=== PATIENT | female | born 1955 ===

== ENCOUNTER 2017-07-20 19:05 | Emergency (ER) | payer MEDICAID ==
[2017-07-20 19:25] VITALS: BP 109/71; PULSE 74; RESP 16; TEMP 99; O2SAT 97
[2017-07-20] MEDS ORDERED: Sodium Chloride 0.9% 1,000 ML IV STA (19:57)
--- NOTE | 2017-07-20 20:05 | ED PDOC ---
HPI: Headache Time Seen by Provider: 07/20/17 19:26 Chief Complaint (Nursing): Headache Chief Complaint (Provider): Headache History Per: Patient History/Exam Limitations: no limitations Onset/Duration Of Symptoms: Days (x4) Current Symptoms Are (Timing): Still Present Quality: "Pain" Preceeding Symptoms: None Associated Symptoms: Vomiting (resolved), Other (loss of appetite) Additional History Per: Family (son) Additional Complaint(s): Shira Kimble is a 62 year old female, with a past medical history of HTN, hemorrhagic stroke and craniotomy, who presents to the emergency department accompanied by son complaining of an intermittent headache onset for x4 days. She states the headache comes and goes every 5 minutes, and is not the worst headache of her life or describe it as a thunderclap headache. Patient also reports having fever, and vomiting for a few days but has since resolved. However, she is still complaining of loss of appetite. Patient works at the [employer] and states she spend great deal of time outside in the cold a couple of days ago. She took Tylenol with no relief. Patient reports similar symptoms many years ago. Patient states she had a brain bleed for which she had surgery done at [place]. She has not seen her doctor for many years and doesn't like going to hospitals. She came to the ED today after her son convinced her. She is not taking any medication for her HTN. She denies any sore throat, diarrhea, chest pain or head injury. No further medical complaints. PMD: None provided. Past Medical History Reviewed: Historical Data, Nursing Documentation, Vital Signs Vital Signs: Last Vital Signs Temp 99.0 F 07/20/17 19:22 Pulse 74 07/20/17 19:22 Resp 16 07/20/17 19:22 BP 109/71 07/20/17 19:22 Pulse Ox 97 07/20/17 19:22 - Medical History PMH: HTN, Hypercholesterolemia Other PMH: hemorrhagic stroke - Surgical History Other surgeries: hysterectomy, craniotomy - Family History Family History: States: No Known Family Hx - Immunization History Hx Tetanus Toxoid Vaccination: No Hx Influenza Vaccination: No Hx Pneumococcal Vaccination: No - Home Medications Home Medications: Ambulatory Orders Medication Instructions Recorded Acetaminophen/Oxycodone Hydr 1 tab PO Q4H #10 tab 04/12/13 [Percocet 325 mg-5 mg] Cephalexin [Keflex] 500 mg PO QID #20 cap 04/12/13 Acetaminophen/Butalbital/Caf 1 tab PO Q6 PRN #15 tab 07/20/17 [Fioricet] - Allergies Allergies/Adverse Reactions: Allergies Allergy/AdvReac Type Severity Reaction Status Date / Time Penicillins Allergy RASH Verified 07/20/17 19:21 Review of Systems ROS Statement: Except As Marked, All Systems Reviewed And Found Negative Constitutional: Negative for: Fever (resolved) ENT: Negative for: Throat Pain Cardiovascular: Negative for: Chest Pain Gastrointestinal: Positive for: Other (loss of appetite). Negative for: Vomiting (resolved), Diarrhea Neurological: Positive for: Headache (intermittent) Physical Exam - Reviewed Nursing Documentation Reviewed: Yes Vital Signs Reviewed: Yes - Physical Exam Appears: Positive for: Non-toxic Head Exam: Positive for: ATRAUMATIC, NORMAL INSPECTION, NORMOCEPHALIC Skin: Positive for: Normal Color, Warm, Dry Eye Exam: Positive for: Normal appearance, EOMI, PERRL Neck: Positive for: Painless ROM, Supple Cardiovascular/Chest: Positive for: Regular Rate, Rhythm. Negative for: Murmur Respiratory: Positive for: Normal Breath Sounds (clear to auscultation). Negative for: Respiratory Distress Gastrointestinal/Abdominal: Positive for: Normal Exam, Soft. Negative for: Tenderness Extremity: Positive for: Normal ROM (all extremities). Negative for: Tenderness , Deformity, Swelling Neurologic/Psych: Positive for: Alert, Oriented (x3), Gait (steady). Negative for: Motor/Sensory Deficits - Laboratory Results Result Diagrams: 07/20/17 20:15 07/20/17 20:15 - ECG O2 Sat by Pulse Oximetry: 97 (RA) Pulse Ox Interpretation: Normal Medical Decision Making Medical Decision Making: Initial Impression: headache differential includes: primary headaches such as migraines, and secondary headaches such as brain mass. HTN, intracranial bleeding. less likely CVA. Initial Plan: --Head w/ contrast [CT] --BMP --Urine dipstick --CBC w/ differential --Erythrocyte sedimentation rate --PTT --PT --Reglan 10 mg IVP --Sodium Chloride 1,000 ml IV 1,000 mls/hr --Reevaluation -Patient does report similar headaches for many years, not the worst headache or thunderclap headache. 21:[address] FINDINGS: Brain: Small nonspecific calcification right frontal lobe. Vascular calcification. No hemorrhage. No significant white matter disease. No edema. Ventricles: No hydrocephalus. Bones: Skull is intact. Sinuses: Evidence of chronic left sphenoid sinus disease with calcifications. Mastoid air cells: No mastoid effusion. IMPRESSION: No CT evidence of acute intracranial abnormality. Please see details/findings as above. 22:45 -Patient reports significant improvement of headache and is currently feeling better. Patient was instructed to follow up with clinic and neurologist. Scribe Attestation: Documented by Blair Montilla, acting as a scribe for Elke Barraza MD Provider Scribe Attestation: All medical record entries made by the Scribe were at my direction and personally dictated by me. I have reviewed the chart and agree that the record accurately reflects my personal performance of the history, physical exam, medical decision making, and the department course for this patient. I have also personally directed, reviewed, and agree with the discharge instructions and disposition. Disposition - Clinical Impression Clinical Impression: Headache - Patient ED Disposition Is Patient to be Admitted: No Doctor Will See Patient In The: Office Counseled Patient/Family Regarding: Studies Performed, Diagnosis, Need For Followup - Disposition Referrals: [facility] [Outside] Disposition: Routine/Home Disposition Time: 23:21 Condition: IMPROVED Additional Instructions: Take your medications as instructed. Follow up with your PCP in 2-3 days. Return for worsening. Prescriptions: Acetaminophen/Butalbital/Caf [Fioricet] 1 tab PO Q6 PRN #15 tab PRN Reason: Headache Instructions: Headache, Adult
[2017-07-20 21:13] LABS: BASO # 0.1 K/uL (0.0-0.2); BASO % 1.1 % (0.0-2.0); EOS # 0.2 K/uL (0.0-0.7); EOS % 2.1 % (0.0-4.0); HEMOGLOBIN 13.9 g/dL (12.0-16.0); LYMPH # 1.7 K/uL (1.0-4.3); LYMPH % 20.3 % (20.0-40.0); MEAN CELL VOLUME 87.5 fl (81.0-99.0); MEAN CORPUSCULAR HEMOGLOBIN 29.4 pg (27.0-31.0); MEAN CORPUSCULAR HGB CONC 33.6 g/dL (33.0-37.0); MEAN PLATELET VOLUME 8.2 fl (7.2-11.7); MONO # 0.7 K/uL (0.0-0.8); NEUT # 5.5 K/uL (1.8-7.0); NEUT % 67.5 % (50.0-75.0); RBC 4.71 Mil/uL (3.80-5.20); RED CELL DISTRIBUTION WIDTH 13.8 % (11.5-14.5); WHITE BLOOD COUNT 8.2 K/uL (4.8-10.8)
[2017-07-20 21:20] LABS: BLOOD UREA NITROGEN 14 mg/dl (7-17); CALCIUM 8.7 mg/dL (8.4-10.2); GFR AFRICAN-AMERICAN > 60; GFR NON-AFRICAN AMERICAN > 60
--- NOTE | 2017-07-20 21:29 | CT ---
EXAM: CT Head Without Intravenous Contrast CLINICAL HISTORY: 62 years old, female; Pain; Headache; Prior surgery; Surgery type: HX of stroke; Patient HX: Pt states: Brain bleed and surgery TECHNIQUE: Axial computed tomography images of the head/brain without intravenous contrast. All CT scans at this facility use one or more dose reduction techniques, viz.: automated exposure control; ma/kV adjustment per patient size (including targeted exams where dose is matched to indication; i.e. head); or iterative reconstruction technique. Coronal and sagittal reformatted images were created and reviewed. COMPARISON: No relevant prior studies available. FINDINGS: Brain: Small nonspecific calcification right frontal lobe. Vascular calcification. No hemorrhage. No significant white matter disease. No edema. Ventricles: No hydrocephalus. Bones: Skull is intact. Sinuses: Evidence of chronic left sphenoid sinus disease with calcifications. Mastoid air cells: No mastoid effusion. IMPRESSION: No CT evidence of acute intracranial abnormality. Please see details/findings as above.
[2017-07-20 21:33] LABS: PARTIAL THROMBOPLASTIN TIME 31.5 Seconds (25.6-37.1)
== END 2017-07-20 23:30 | disposition home or self-care (01) ==
LOC: H.ER 19:05
DX: R51 Headache (principal); E78.00 Pure hypercholesterolemia, unspecified; I10 Essential (primary) hypertension; Z86.73 Personal history of transient ischemic attack (TIA), and cerebral infarction without residual deficits; Z88.0 Allergy status to penicillin; Z90.710 Acquired absence of both cervix and uterus
CPT/HCPCS: 70450; 80048; 85025; 85610; 85651; 85730; 96361; 96374; 99283; J1885; J7040

== ENCOUNTER 2017-07-26 12:14 | Emergency (ER) | payer MEDICAID ==
--- NOTE | 2017-07-26 14:07 | ED PDOC ---
HPI: Headache Time Seen by Provider: 07/26/17 12:32 Chief Complaint (Nursing): Headache History Per: Patient (this 62 yo female returns to the ER because of headaches. She was seen 3 days earlier for the same and discharged home after workup with CT and labs. Patient states that the Fioricet has not helped. She continues to have the same headches and also has dizziness.) History/Exam Limitations: no limitations Past Medical History Reviewed: Historical Data, Nursing Documentation, Vital Signs Vital Signs: Last Vital Signs Temp 98.0 F 07/26/17 12:18 Pulse 68 07/26/17 12:18 Resp 16 07/26/17 12:18 BP 116/68 07/26/17 12:18 Pulse Ox 97 07/26/17 12:18 - Medical History PMH: HTN, Hypercholesterolemia - Surgical History Surgical History: No Surg Hx - Family History Family History: States: No Known Family Hx - Immunization History Hx Tetanus Toxoid Vaccination: No Hx Influenza Vaccination: No Hx Pneumococcal Vaccination: No - Home Medications Home Medications: Ambulatory Orders Medication Instructions Recorded Acetaminophen/Oxycodone Hydr 1 tab PO Q4H #10 tab 04/12/13 [Percocet 325 mg-5 mg] Cephalexin [Keflex] 500 mg PO QID #20 cap 04/12/13 Acetaminophen/Butalbital/Caf 1 tab PO Q6 PRN #15 tab 07/20/17 [Fioricet] Acetaminophen [Tylenol 325mg tab] 650 mg PO Q6H PRN #50 tab 07/26/17 Ibuprofen [Motrin Tab] 600 mg PO TID PRN #30 tab 07/26/17 - Allergies Allergies/Adverse Reactions: Allergies Allergy/AdvReac Type Severity Reaction Status Date / Time Penicillins Allergy RASH Verified 07/20/17 19:21 Review of Systems ROS Statement: Except As Marked, All Systems Reviewed And Found Negative Physical Exam - Reviewed Nursing Documentation Reviewed: Yes Vital Signs Reviewed: Yes - Physical Exam Appears: Positive for: Well, Non-toxic, No Acute Distress Head Exam: Positive for: ATRAUMATIC, NORMAL INSPECTION, NORMOCEPHALIC Skin: Positive for: Normal Color, Warm, DRY Eye Exam: Positive for: EOMI, Normal appearance, PERRL ENT: Positive for: Normal ENT Inspection Neck: Positive for: Normal, Painless ROM Cardiovascular/Chest: Positive for: Regular Rate, Rhythm Respiratory: Positive for: CNT, Normal Breath Sounds Gastrointestinal/Abdominal: Positive for: Normal Exam, Soft Back: Positive for: Normal Inspection Extremity: Positive for: Normal ROM Neurologic/Psych: Positive for: Alert, Oriented - ECG O2 Sat by Pulse Oximetry: 97 Medical Decision Making Medical Decision Making: Patient's labs and imaging from recent visit. Details discussed. Explain to patient's son that repeat studies are not indicated. Patient improved with Toradol IM and Tyelenol Disposition - Clinical Impression Clinical Impression: Headache - Patient ED Disposition Is Patient to be Admitted: No Doctor Will See Patient In The: Office Counseled Patient/Family Regarding: Diagnosis, Need For Followup, Rx Given - Disposition Referrals: [facility] [Outside] [facility] [Outside] [facility] [Outside] Disposition Time: 12:09 Condition: IMPROVED Prescriptions: Acetaminophen [Tylenol 325mg tab] 650 mg PO Q6H PRN #50 tab PRN Reason: Pain, Mild (1-3) Ibuprofen [Motrin Tab] 600 mg PO TID PRN #30 tab PRN Reason: Pain, Moderate (4-7) Instructions: Headache, Adult (DC) Forms: [employer] (Faroese) Print Language: SRI LANKAN - POA Present On Arrival: None
[2017-07-26 15:23] VITALS: BP 123/68; PULSE 55; RESP 18; TEMP 98.6; O2SAT 99
== END 2017-07-26 15:29 | disposition home or self-care (01) ==
LOC: H.ER 12:14
DX: R51 Headache (principal); I10 Essential (primary) hypertension; Z88.0 Allergy status to penicillin
CPT/HCPCS: 96372; 99283; J1885

== ENCOUNTER 2017-07-27 16:32 | Observation (INO) | payer MEDICAID ==
--- NOTE | 2017-07-27 16:54 | ED PDOC ---
HPI: Headache Time Seen by Provider: 07/27/17 16:53 Chief Complaint (Nursing): Headache Chief Complaint (Provider): headache History Per: Patient Additional Complaint(s): 62 year old female presents to emergency department for evaluation of persistent headache ongoing for 2 weeks. Patient was seen initially on July 20 in ED and again yesterday in ED. CT head for July 20 was read as negative. After first ED visit she was given rx Fioricet which did not help. Yesterday when she returned to ED she was given prescriptions for Tylenol and Motrin which also do not provide adequate headache relief. Patient rates pain as an 8 out of 10. No associated nausea, vomiting or vision changes. Patient was seen today at [facility] and was sent to ED for further evaluation. PMD: [facility] Past Medical History Reviewed: Historical Data, Nursing Documentation, Vital Signs Vital Signs: Last Vital Signs Temp 98.0 F 07/27/17 16:34 Pulse 57 L 07/27/17 16:34 Resp 16 07/27/17 16:34 BP 138/73 07/27/17 16:34 Pulse Ox 99 07/27/17 16:34 - Medical History PMH: HTN, Hypercholesterolemia - Surgical History Other surgeries: craniotomy - Family History Family History: States: No Known Family Hx - Living Arrangements Living Arrangements: With Family - Social History Current smoker - smoking cessation education provided: No Alcohol: None Drugs: Denies - Home Medications Home Medications: Ambulatory Orders Medication Instructions Recorded Acetaminophen/Oxycodone Hydr 1 tab PO Q4H #10 tab 04/12/13 [Percocet 325 mg-5 mg] Cephalexin [Keflex] 500 mg PO QID #20 cap 04/12/13 Acetaminophen/Butalbital/Caf 1 tab PO Q6 PRN #15 tab 07/20/17 [Fioricet] Acetaminophen [Tylenol 325mg tab] 650 mg PO Q6H PRN #50 tab 07/26/17 Ibuprofen [Motrin Tab] 600 mg PO TID PRN #30 tab 07/26/17 - Allergies Allergies/Adverse Reactions: Allergies Allergy/AdvReac Type Severity Reaction Status Date / Time Penicillins Allergy RASH Verified 07/20/17 19:21 Review of Systems ROS Statement: Except As Marked, All Systems Reviewed And Found Negative Constitutional: Negative for: Fever, Chills, Weakness Cardiovascular: Negative for: Chest Pain Respiratory: Negative for: Cough, Shortness of Breath Gastrointestinal: Negative for: Nausea, Vomiting Neurological: Positive for: Headache, Dizziness. Negative for: Weakness, Numbness, Incoordination, Change in Speech, Confusion, Seizures, Altered Mental Status Physical Exam - Reviewed Nursing Documentation Reviewed: Yes Vital Signs Reviewed: Yes - Physical Exam Appears: Positive for: Well, Non-toxic, No Acute Distress Head Exam: Positive for: ATRAUMATIC, NORMAL INSPECTION Skin: Negative for: Rash Eye Exam: Positive for: Normal appearance ENT: Positive for: Normal ENT Inspection Neck: Positive for: Normal. Negative for: Pain On Movement Of Neck Cardiovascular/Chest: Positive for: Regular Rate, Rhythm Respiratory: Positive for: Normal Breath Sounds. Negative for: Wheezing, Respiratory Distress Extremity: Positive for: Normal ROM Neurologic/Psych: Positive for: Alert, information services assistant II-XII (grossly intact), Oriented. Negative for: Motor/Sensory Deficits, Aphasia, Facial Droop - Laboratory Results Result Diagrams: 07/27/17 17:25 07/27/17 17:25 - ECG Interpretation Of ECG: Normal sinus rhythm 61 bpm, no acute changes, reviewed by PA and ED attending O2 Sat by Pulse Oximetry: 99 Pulse Ox Interpretation: Normal - Other Rad CT head X-Ray: Read By Radiologist X-Ray Interpretation: see below CTA head and neck X-Ray: Read By Radiologist X-Ray Interpretation: see below CXR X-Ray: Interpreted by Me, Viewed By Me X-Ray Interpretation: no acute finding Medical Decision Making Medical Decision Makin62 year old with persistent headache, sent by clinic Plan: CBC CMP CT head IVF IV magnesium IV decadron IV depakote IV toradol PO reglan CT: HEMORRHAGE: No intracranial hemorrhage. BRAIN: A tiny granuloma is reiterated right frontal gyrus superiorly once again with remaining brain parenchyma normal in density once again including those in the posterior fossa. Corticomedullary differentiation remains good and there is no edema pattern throughout the brain. No interval mass effect or fluid collection is appreciated with the sulci and cisterns unremarkable throughout. Limited diffuse cerebral atrophy is reiterated Midline brain anatomy is stable appearing. VENTRICLES: Unremarkable. No hydrocephalus. CALVARIUM: Unremarkable. PARANASAL SINUSES: Prominent left sphenoid sinus disease reiterated. MASTOID AIR CELLS: Unremarkable as visualized. No inflammatory changes. OTHER FINDINGS: None. IMPRESSION: Stable unenhanced head CT with no acute intracranial findings. Limited diffuse cerebral atrophy is reiterated. Left sphenoid sinus disease again evident. 6:50 pm: Patient reports some improvement to headache pain status post Toradol, Reglan and Decadron. Magnesium and Depakote now being administered. Case was discussed with family practice resident, Dr. Pandya who states toward her CTA head and neck. 9:00 PM CTA: left sphenoid sinus mucosal thickening/polyp, no acute finding. Headache is improved with patient still complains of dizziness. As per family practice resident, patient will be admitted for observation. Patient is aware of and agrees with admission. Disposition - Clinical Impression Clinical Impression: Headache, Dizziness - Patient ED Disposition Is Patient to be Admitted: Yes - Disposition Disposition Time: 21:27 Condition: FAIR - Pt Status Changed To: Hospital Disposition Of: Observation - POA Present On Arrival: None Results - Lab Results Lab Results: 07/27/17 07/27/17 17:25 17:25 WBC 9.1 RBC 4.49 Hgb 13.1 Hct 39.5 MCV 88.0 MCH 29.1 MCHC 33.1 RDW 14.0 Plt Count 257 MPV 8.4 Neut % (Auto) 71.5 Lymph % (Auto) 20.0 Norman % (Auto) 5.3 Eos % (Auto) 1.9 Baso % (Auto) 1.3 Neut # (Auto) 6.5 Lymph # (Auto) 1.8 Norman # (Auto) 0.5 Eos # (Auto) 0.2 Baso # (Auto) 0.1 Sodium 140 Potassium 3.9 Chloride 104 Carbon Dioxide 23 Anion Gap 17 BUN 14 Creatinine 0.7 Est GFR ( Amer) > 60 Est GFR (Non-Af Amer) > 60 Random Glucose 96 Calcium 8.7 Total Bilirubin 0.3 AST 25 ALT 39 Alkaline Phosphatase 98 Total Protein 6.8 Albumin 3.8 Globulin 3.1 Albumin/Globulin Ratio 1.2
[2017-07-27] MEDS ORDERED: Dexamethasone 4 mg/1 ml IVP STA (17:07)
[2017-07-27] MEDS ORDERED: Valproate 500 MG in Sodium Chloride 0.9% 100 ML IVPB STA (17:07)
[2017-07-27] MEDS ORDERED: Magnesium Sulfate 1 gm in D5W 1 GM/100 ML BAG IVPB STA (17:07)
[2017-07-27] MEDS ORDERED: Sodium Chloride 0.9% 1,000 ML IV STA (17:07)
[2017-07-27 17:33] LABS: BASO # 0.1 K/uL (0.0-0.2); BASO % 1.3 % (0.0-2.0); EOS # 0.2 K/uL (0.0-0.7); EOS % 1.9 % (0.0-4.0); HEMOGLOBIN 13.1 g/dL (12.0-16.0); LYMPH # 1.8 K/uL (1.0-4.3); MEAN CORPUSCULAR HEMOGLOBIN 29.1 pg (27.0-31.0); MEAN CORPUSCULAR HGB CONC 33.1 g/dL (33.0-37.0); MEAN PLATELET VOLUME 8.4 fl (7.2-11.7); MONO # 0.5 K/uL (0.0-0.8); MONO % 5.3 % (0.0-10.0); NEUT # 6.5 K/uL (1.8-7.0); NEUT % 71.5 % (50.0-75.0); NRBC % 0.1 % (0.0-0.0); RBC 4.49 Mil/uL (3.80-5.20); WHITE BLOOD COUNT 9.1 K/uL (4.8-10.8)
[2017-07-27 17:46] LABS: ALB/GLOB RATIO 1.2 (1.0-2.1); ALBUMIN 3.8 g/dL (3.5-5.0); ALT/SGPT 39 U/L (9-52); AST/SGOT 25 U/L (14-36); BLOOD UREA NITROGEN 14 mg/dl (7-17); CALCIUM 8.7 mg/dL (8.4-10.2); GFR AFRICAN-AMERICAN > 60; GFR NON-AFRICAN AMERICAN > 60
[2017-07-27] MEDS ORDERED: Dexamethasone 4 mg/1 ml ONE (18:14)
--- NOTE | 2017-07-27 18:29 | CT ---
PROCEDURE: CT HEAD WITHOUT CONTRAST. HISTORY: persistent headache COMPARISON: Unenhanced head CT dated 07/20/2017. TECHNIQUE: Axial computed tomography images were obtained through the head/brain without intravenous contrast. Radiation dose: Total exam DLP = 698.33 mGy-cm. This CT exam was performed using one or more of the following dose reduction techniques: Automated exposure control, adjustment of the mA and/or kV according to patient size, and/or use of iterative reconstruction technique. FINDINGS: HEMORRHAGE: No intracranial hemorrhage. BRAIN: A tiny granuloma is reiterated right frontal gyrus superiorly once again with remaining brain parenchyma normal in density once again including those in the posterior fossa. Corticomedullary differentiation remains good and there is no edema pattern throughout the brain. No interval mass effect or fluid collection is appreciated with the sulci and cisterns unremarkable throughout. Limited diffuse cerebral atrophy is reiterated Midline brain anatomy is stable appearing. VENTRICLES: Unremarkable. No hydrocephalus. CALVARIUM: Unremarkable. PARANASAL SINUSES: Prominent left sphenoid sinus disease reiterated. MASTOID AIR CELLS: Unremarkable as visualized. No inflammatory changes. OTHER FINDINGS: None. IMPRESSION: Stable unenhanced head CT with no acute intracranial findings. Limited diffuse cerebral atrophy is reiterated. Left sphenoid sinus disease again evident.
[2017-07-27] MEDS ORDERED: Iodixanol 320 MG/ML 100 ML BOTTLE IV ONE (19:43)
--- NOTE | 2017-07-27 22:34 | CP.PCM.HP ---
<Bianka Kumar - Last Filed: 07/28/17 01:21> History of Present Illness - History of Present Illness History of Present Illness: 62 y/o F with PMHx Brain aneurysm approximately 10 years ago, s/p aneurysm repair/Craniotomy at [facility], also h/o stroke with residual left sided weakness presents to ED sent by PMD complaining of persistent and intractable headaches for 2 weeks. Prior to this ER visit, patient had two ER visit dated 07/20/17 and 07/26/17 for similar complains, had a CT scan reported as no evidence of acute intracraneal abnormality, and discharge home on tylenol, fioricet, and ibuprofen. Patient describes her headaches as bilateral, constant , intensity 10/10, improves with analgesics to 5/10, radiating to occipital area , feels more intense in her left sided of her head, aggravated with movement of her head to left side, partially alleviated with analgesics, but never get complate relief of her headache. Denies associated photophobia, phonophobia, and nucal rigidity. Reports a history of approximately 2 days of subjective fevers, nausea and 2-3 episodes of nonbloody vomits associated with her headache 1 week ago, denies subjective fevers, chills, N/V, blurry vision, vision loss, weakness, tingling, numbness. Has a h/o stroke around 2008, seen in [facility], with left side residual weakness, however is unchanged from her baseline. Denies h/o Migraine headaches. PMD: [facility] Full code PMHx: Brain aneurysm approximately 10 years ago, s/p aneurysm repair/Craniotomy at [facility] Allergies: Penicillin/Rash FHx: Mother: : DM and HTN, Father: alive: DM and HTN SHx: craniotomy, hysterectomy, cholecystectomy socialhx: denies smoking, etog, and illicit drugs Live with family ER course: VS: afebrile, BP wnl, HR: 57 PE: no evidence of neurological defect, unremarkable, gait was not assess because patient feels drowsy from medications given for headache labs: CBC, CMP: wnl treatment: dexamethasone 8 mg IV, ketorolac 30 mg IV, mag 1 gm, depakote 500 mg IV, reglan 10 mg PO Present on Admission - Present on Admission Any Indicators Present on Admission: No History of DVT/PE: No History of Uncontrolled Diabetes: No Urinary Catheter: No Decubitus Ulcer Present: No Past Patient History - Past Social History Alcohol: None Drugs: Denies - CARDIAC Hx Hypercholesterolemia: Yes Hx Hypertension: Yes - PSYCHIATRIC Hx Substance Use: No Meds Allergies/Adverse Reactions: Allergies Allergy/AdvReac Type Severity Reaction Status Date / Time Penicillins Allergy RASH Verified 07/20/17 19:21 Physical Exam - Constitutional Appears: Non-toxic, No Acute Distress - Eye Exam Eye Exam: EOMI, Normal appearance Pupil Exam: PERRL - ENT Exam ENT Exam: Mucous Membranes Moist - Respiratory Exam Respiratory Exam: Clear to Auscultation Bilateral, NORMAL BREATHING PATTERN. absent: Rales, Rhonchi, Wheezes, Respiratory Distress, Stridor - Cardiovascular Exam Cardiovascular Exam: REGULAR RHYTHM, +S1, +S2 - GI/Abdominal Exam GI & Abdominal Exam: Normal Bowel Sounds, Soft. absent: Guarding, Hernia, Rebound, Rigid, Tenderness - Extremities Exam Extremities exam: Positive for: normal inspection. Negative for: calf tenderness, pedal edema - Neurological Exam Neurological exam: Alert, CN II-XII Intact, Oriented x3 Additional comments: no evidence of motor deficit in upper/lower extremities - Psychiatric Exam Psychiatric exam: Normal Affect, Normal Mood - Skin Skin Exam: Dry, Intact, Normal Color Results - Vital Signs Recent Vital Signs: Last Vital Signs Temp 98.0 F 07/27/17 16:34 Pulse 57 L 07/27/17 16:34 Resp 16 07/27/17 16:34 BP 138/73 07/27/17 16:34 Pulse Ox 99 07/27/17 21:28 - Labs Result Diagrams: 07/27/17 17:25 07/27/17 17:25 Labs: Laboratory Results - last 24 hr 07/27/17 07/27/17 17:25 17:25 WBC 9.1 RBC 4.49 Hgb 13.1 Hct 39.5 MCV 88.0 MCH 29.1 MCHC 33.1 RDW 14.0 Plt Count 257 MPV 8.4 Neut % (Auto) 71.5 Lymph % (Auto) 20.0 [place] % (Auto) 5.3 Eos % (Auto) 1.9 Baso % (Auto) 1.3 Neut # (Auto) 6.5 Lymph # (Auto) 1.8 [place] # (Auto) 0.5 Eos # (Auto) 0.2 Baso # (Auto) 0.1 Sodium 140 Potassium 3.9 Chloride 104 Carbon Dioxide 23 Anion Gap 17 BUN 14 Creatinine 0.7 Est GFR ( Amer) > 60 Est GFR (Non-Af Amer) > 60 Random Glucose 96 Calcium 8.7 Total Bilirubin 0.3 AST 25 ALT 39 Alkaline Phosphatase 98 Total Protein 6.8 Albumin 3.8 Globulin 3.1 Albumin/Globulin Ratio 1.2 Assessment & Plan - Assessment and Plan (Free Text) Assessment: 62 y/o F with PMHx of Brain aneurysm, and stroke admitted with new intractable and persistent headaches. Plan: Intractable Headache -MedSurg -no evidence of focal neurological defect, no visual defects -unclear etiology -new onset in elderly -check lipid profile, TSH, HgbA1C in am -repeated Head CT reported as no evidence of acute intracraneal findings -Head and neck CTA reported as per ER provider no acute findings, pending official results -s/p dexamethasone 8 mg IV, ketorolac 30 mg IV, mag 1 gm, depakote 500 mg IV, reglan 10 mg PO in ER -Neurology consult in AM, recommendations are appreciated H/O stroke -unclear if ischemic or hemorrhagic etiology -pt in no current medications -check lipid profile DVT prophylaxis SCDs - Date & Time Date: 07/27/17 Time: 22:00 <Valorie Figueroa - Last Filed: 07/28/17 13:31> Results - Vital Signs Recent Vital Signs: Last Vital Signs Temp 98.1 F 07/28/17 08:04 Pulse 69 07/28/17 08:04 Resp 18 07/28/17 08:04 BP 101/64 07/28/17 08:04 Pulse Ox 98 07/28/17 08:04 - Labs Result Diagrams: 07/27/17 17:25 07/27/17 17:25 Labs: Laboratory Results - last 24 hr 07/27/17 07/27/17 07/28/17 17:25 17:25 05:30 WBC 9.1 RBC 4.49 Hgb 13.1 Hct 39.5 MCV 88.0 MCH 29.1 MCHC 33.1 RDW 14.0 Plt Count 257 MPV 8.4 Neut % (Auto) 71.5 Lymph % (Auto) 20.0 [place] % (Auto) 5.3 Eos % (Auto) 1.9 Baso % (Auto) 1.3 Neut # (Auto) 6.5 Lymph # (Auto) 1.8 [place] # (Auto) 0.5 Eos # (Auto) 0.2 Baso # (Auto) 0.1 ESR Sodium 140 Potassium 3.9 Chloride 104 Carbon Dioxide 23 Anion Gap 17 BUN 14 Creatinine 0.7 Est GFR ( Amer) > 60 Est GFR (Non-Af Amer) > 60 Random Glucose 96 Calcium 8.7 Total Bilirubin 0.3 AST 25 ALT 39 Alkaline Phosphatase 98 Total Protein 6.8 Albumin 3.8 Globulin 3.1 Albumin/Globulin Ratio 1.2 Triglycerides 141 Cholesterol 228 H LDL Cholesterol Direct 155 H HDL Cholesterol 39 TSH 3rd Generation 1.11 07/28/17 05:30 WBC RBC Hgb Hct MCV MCH MCHC RDW Plt Count MPV Neut % (Auto) Lymph % (Auto) [place] % (Auto) Eos % (Auto) Baso % (Auto) Neut # (Auto) Lymph # (Auto) [place] # (Auto) Eos # (Auto) Baso # (Auto) ESR 19 Sodium Potassium Chloride Carbon Dioxide Anion Gap BUN Creatinine Est GFR ( Amer) Est GFR (Non-Af Amer) Random Glucose Calcium Total Bilirubin AST ALT Alkaline Phosphatase Total Protein Albumin Globulin Albumin/Globulin Ratio Triglycerides Cholesterol LDL Cholesterol Direct HDL Cholesterol TSH 3rd Generation Attending/Attestation - Attestation I have personally seen and examined this patient.: Yes I have fully participated in the care of the patient.: Yes I have reviewed all pertinent clinical information: Yes Notes (Text): 07/28/17 13:30 ATTENDING -ATTESTATIO STATEMENT. PATIENT AND EXAMINED. CASE DISCUSSED WITH RESIDENTS. AGREE WITH FINDINGS AND PLAN.
[2017-07-28 08:05] VITALS: RESP 18; O2SAT 98
[2017-07-28] MEDS ORDERED: Influenza Vaccine 18yr & older 0.5 ML/45 MCG SYR IM ONE (09:00)
[2017-07-28] MEDS ORDERED: Pneumococcal 23-Valent Vaccine IM ONE (09:00)
--- NOTE | 2017-07-28 09:38 | RAD ---
PROCEDURE: CHEST RADIOGRAPH, 1 VIEW HISTORY: admit COMPARISON: None available. FINDINGS: LUNGS: The lungs are well inflated and clear. PLEURA: No pneumothorax or pleural fluid seen. CARDIOVASCULAR: Normal. OSSEOUS STRUCTURES: No significant abnormalities. VISUALIZED UPPER ABDOMEN: Normal. OTHER FINDINGS: None. IMPRESSION: No active pulmonary disease.
--- NOTE | 2017-07-28 10:54 | CT ---
PROCEDURE: CTA HEAD AND NECK WITH CONTRAST HISTORY: Headache, h/o aneurysm COMPARISON: None available. TECHNIQUE: Initial noncontrast head CT was performed. Subsequently, CT angiogram of the head and neck were performed after the intravenous administration of 80 mL of Omnipaque 350. Contiguous 1.5mm thick images were obtained in the axial plane of the neck. 2-D coronal and sagittal MPR images were obtained. Imaging postprocessing was performed with 3-D images also obtained. A delayed contrast head CT was also obtained. This CT exam was performed using one or more of the following dose reduction techniques: Automated exposure control, adjustment of the mA and/or kV according to patient size, and/or use of iterative reconstruction technique. Contrast dose: 80 mL Visipaque 320 Radiation dose: Total exam DLP = 552.87 mGy-cm. FINDINGS: HEAD: Right: The intracranial internal carotid artery, and anterior and middle cerebral arteries are widely patent. Left: The intracranial internal carotid artery, and anterior and middle cerebral arteries are widely patent. Posterior circulation: The visualized intracranial vertebral arteries, basilar artery and posterior cerebral arteries are widely patent. Ther is no endoluminal filling defect to suggest thrombus. There is no intracranial saccular aneurysm. NECK: There is a three vessel aortic arch. There is no stenosis at the origins of the great vessels at the level of the aortic arch. Right Carotid: On the right, the common carotid, internal carotid and external carotid arteries are widely patent. There is no hemodynamically significant stenosis in the internal carotid arteries. Left Carotid: On the left, the common carotid, internal carotid and external carotid arteries are widely patent.There is no hemodynamically significant stenosis in the internal carotid arteries. The vertebral arteries are widely patent. The vertebral artery is hypoplastic, an anatomic variant. The visualized soft tissues of the neck are normal. The visualized brain and cervical spine are within normal limits. The lung apices are clear. There is a retention cyst/polyp in the left sphenoid chamber. IMPRESSION: No evidence of saccular aneurysm, endoluminal thrombus or occlusion. No hemodynamically significant stenosis in the internal carotid arteries.
[2017-07-28] MEDS ORDERED: DiphenhydrAMINE 50 mg/ml Inj IVP ONE (10:59)
--- NOTE | 2017-07-28 12:32 | CP.PCM.CON ---
History of Present Illness - History of Present Illness History of Present Illness: 62 yr old woman with pmh of aneurysmal clip s/p craniotomy at [facility], with prior stroke and left sided weakness. Miss zurita was sent to the ER complaining of intractable headaches for about 2 weeks, with a total of two visits in one month in the last one two months. Pain is 10/10, throbbing, constant, bilateral, more on left side of head, near temporal region, with no photophobia, phonophobia,nausea or vomiting, seizures or loss of consciousness. She does have a history of 2 days of fevers, with vomiting. Neuroimaging has shown no abnormalities so patient was discharged home on fioricet, tylenol and nsaids. There is no history of mva or head trauma, or lifting heavy weights. PMHx: Brain aneurysm approximately 10 years ago, s/p aneurysm repair/Craniotomy at [facility] Allergies: Penicillin/Rash FHx: Mother: : DM and HTN, Father: alive: DM and HTN SHx: craniotomy, hysterectomy, cholecystectomy socialhx: denies smoking, etog, and illicit drugs On exam: AAOX3. Pupils 3mm -2mm with light. EOMI. CN 2- 12 normal. no diplopia, no nystagmus VFF. SPeech fluent ( exam conducted in [place]),motor: strength: normal. sensory: intact ft, pin, position and vibration sense. Dtr: +2 ul and ll bl. Toes downgoing. No clonus. Gait: normal. no ataxia. turns well. no dysmetria. Past Patient History - Past Medical History & Family History Past Medical History?: Yes - Past Social History Smoking Status: Never Smoked - CARDIAC Hx Hypercholesterolemia: Yes Hx Hypertension: Yes - PULMONARY Hx Respiratory Disorders: No - NEUROLOGICAL Hx Neurological Disorder: No Other/Comment: stroke with residual left sided weakness and brain aneurysm - HEENT Hx HEENT Problems: No - RENAL Hx Chronic Kidney Disease: No - ENDOCRINE/METABOLIC Hx Endocrine Disorders: No - HEMATOLOGICAL/ONCOLOGICAL Hx AIDS: No Hx Human Immunodeficiency Virus (HIV): No - INTEGUMENTARY Hx Dermatological Problems: No - MUSCULOSKELETAL/RHEUMATOLOGICAL Hx Falls: No - GASTROINTESTINAL Hx Gastrointestinal Disorders: No - GENITOURINARY/GYNECOLOGICAL Hx Genitourinary Disorders: No - PSYCHIATRIC Hx Anxiety: No Hx Substance Use: No - SURGICAL HISTORY Hx Cholecystectomy: Yes Hx Hysterectomy: Yes Other/Comment: craniotomy and aneurysm repair - ANESTHESIA Hx Anesthesia: Yes Hx Anesthesia Reactions: No Meds Home Medications: Home Medication List Medication Instructions Recorded Confirmed Type Ibuprofen [Motrin] 400 mg PO Q6 PRN #20 tab 07/28/17 Rx Allergies/Adverse Reactions: Allergies Allergy/AdvReac Type Severity Reaction Status Date / Time Penicillins Allergy RASH Verified 07/20/17 19:21 Results - Vital Signs Recent Vital Signs: Last Vital Signs Temp 98.1 F 07/28/17 08:04 Pulse 69 07/28/17 08:04 Resp 18 07/28/17 08:04 BP 101/64 07/28/17 08:04 Pulse Ox 98 07/28/17 08:04 - Labs Result Diagrams: 07/27/17 17:25 07/27/17 17:25 Labs: Laboratory Results - last 24 hr 07/27/17 07/27/17 07/28/17 17:25 17:25 05:30 WBC 9.1 RBC 4.49 Hgb 13.1 Hct 39.5 MCV 88.0 MCH 29.1 MCHC 33.1 RDW 14.0 Plt Count 257 MPV 8.4 Neut % (Auto) 71.5 Lymph % (Auto) 20.0 [place] % (Auto) 5.3 Eos % (Auto) 1.9 Baso % (Auto) 1.3 Neut # (Auto) 6.5 Lymph # (Auto) 1.8 [place] # (Auto) 0.5 Eos # (Auto) 0.2 Baso # (Auto) 0.1 ESR Sodium 140 Potassium 3.9 Chloride 104 Carbon Dioxide 23 Anion Gap 17 BUN 14 Creatinine 0.7 Est GFR ( Amer) > 60 Est GFR (Non-Af Amer) > 60 Random Glucose 96 Calcium 8.7 Total Bilirubin 0.3 AST 25 ALT 39 Alkaline Phosphatase 98 Total Protein 6.8 Albumin 3.8 Globulin 3.1 Albumin/Globulin Ratio 1.2 Triglycerides 141 Cholesterol 228 H LDL Cholesterol Direct 155 H HDL Cholesterol 39 TSH 3rd Generation 1.11 07/28/17 05:30 WBC RBC Hgb Hct MCV MCH MCHC RDW Plt Count MPV Neut % (Auto) Lymph % (Auto) [place] % (Auto) Eos % (Auto) Baso % (Auto) Neut # (Auto) Lymph # (Auto) [place] # (Auto) Eos # (Auto) Baso # (Auto) ESR 19 Sodium Potassium Chloride Carbon Dioxide Anion Gap BUN Creatinine Est GFR ( Amer) Est GFR (Non-Af Amer) Random Glucose Calcium Total Bilirubin AST ALT Alkaline Phosphatase Total Protein Albumin Globulin Albumin/Globulin Ratio Triglycerides Cholesterol LDL Cholesterol Direct HDL Cholesterol TSH 3rd Generation - Imaging and Cardiology CT scan - head Status: Image reviewed by me (ct and cta head are normal. ), Report reviewed by me Assessment & Plan - Assessment and Plan (Free Text) Assessment: 62 yr old woman with what appears to be migraine, that was exacerbated by viral illness and dehydration. I am not concerned about stroke with this patient as her exam is normal and she does not appear to have any signs of aneurysmal rupture. However, I think neuroimaging would be helpful. Plan: 1. MRI Brain with and without cassandra. 2. Continue current treatmetn for migraine. I would recommend toradol IV, and magnesium 400 mg bid. Thankyou for this interesting consult. We will follow Dr. Fred MD, DPN.
[2017-07-28] MEDS ORDERED: Divalproex 500 mg ER (ONCE DAILY formulation) PO ONE (14:45)
[2017-07-28 16:24] VITALS: BP 121/65; PULSE 75; TEMP 99.1
--- NOTE | 2017-07-28 18:11 | CARD ---
APPROVED REPORT EKG Measurement Heart [id number] <Conclusion> Normal sinus rhythm Normal ECG
--- NOTE | 2017-07-28 18:58 | CP.PCM.DIS ---
Addendum entered and electronically signed by Jeremy Lynn MD 07/28/17 19:03: Physical exam on discharge: AAOX3; denies headaches; cardiac: s1s2 no murmurs; pulm: clear bl no wheezing; abdo: soft nontender; Original Note: <Jeremy Lynn - Last Filed: 07/28/17 18:54> Provider - Provider Date of Admission: 07/27/17 21:28 Attending physician: Cindy Degroot MD Time Spent in preparation of Discharge (in minutes): 20 Diagnosis - Discharge Diagnosis (1) Headache Status: Acute Hospital Course - Lab Results Lab Results: Most Recent Lab Values WBC 9.1 K/uL (4.8-10.8) 07/27/17 17:25 RBC 4.49 Mil/uL (3.80-5.20) 07/27/17 17:25 Hgb 13.1 g/dL (12.0-16.0) 07/27/17 17:25 Hct 39.5 % (34.0-47.0) 07/27/17 17:25 MCV 88.0 fl (81.0-99.0) 07/27/17 17:25 MCH 29.1 pg (27.0-31.0) 07/27/17 17:25 MCHC 33.1 g/dL (33.0-37.0) 07/27/17 17:25 RDW 14.0 % (11.5-14.5) 07/27/17 17:25 Plt Count 257 K/uL (130-400) 07/27/17 17:25 MPV 8.4 fl (7.2-11.7) 07/27/17 17:25 Neut % (Auto) 71.5 % (50.0-75.0) 07/27/17 17:25 Lymph % (Auto) 20.0 % (20.0-40.0) 07/27/17 17:25 [place] % (Auto) 5.3 % (0.0-10.0) 07/27/17 17:25 Eos % (Auto) 1.9 % (0.0-4.0) 07/27/17 17:25 Baso % (Auto) 1.3 % (0.0-2.0) 07/27/17 17:25 Neut # (Auto) 6.5 K/uL (1.8-7.0) 07/27/17 17:25 Lymph # (Auto) 1.8 K/uL (1.0-4.3) 07/27/17 17:25 [place] # (Auto) 0.5 K/uL (0.0-0.8) 07/27/17 17:25 Eos # (Auto) 0.2 K/uL (0.0-0.7) 07/27/17 17:25 Baso # (Auto) 0.1 K/uL (0.0-0.2) 07/27/17 17:25 ESR 19 mm/hr (0-30) 07/28/17 05:30 Sodium 140 mmol/l (132-148) 07/27/17 17:25 Potassium 3.9 MMOL/L (3.6-5.0) 07/27/17 17:25 Chloride 104 mmol/L (98-107) 07/27/17 17:25 Carbon Dioxide 23 mmol/L (22-30) 07/27/17 17:25 Anion Gap 17 (10-20) 07/27/17 17:25 BUN 14 mg/dl (7-17) 07/27/17 17:25 Creatinine 0.7 mg/dl (0.7-1.2) 07/27/17 17:25 Est GFR ( Amer) > 60 07/27/17 17:25 Est GFR (Non-Af Amer) > 60 07/27/17 17:25 Random Glucose 96 mg/dL (65-105) 07/27/17 17:25 Hemoglobin A1c 5.8 % (4.2-6.5) 07/28/17 05:30 Calcium 8.7 mg/dL (8.4-10.2) 07/27/17 17:25 Total Bilirubin 0.3 mg/dl (0.2-1.3) 07/27/17 17:25 AST 25 U/L (14-36) 07/27/17 17:25 ALT 39 U/L (9-52) 07/27/17 17:25 Alkaline Phosphatase 98 U/L (38-126) 07/27/17 17:25 Total Protein 6.8 G/DL (6.3-8.2) 07/27/17 17:25 Albumin 3.8 g/dL (3.5-5.0) 07/27/17 17:25 Globulin 3.1 gm/dL (2.2-3.9) 07/27/17 17:25 Albumin/Globulin Ratio 1.2 (1.0-2.1) 07/27/17 17:25 Triglycerides 141 mg/DL (0-149) 07/28/17 05:30 Cholesterol 228 mg/dL (0-199) H 07/28/17 05:30 LDL Cholesterol Direct 155 mg/dL (0-129) H 07/28/17 05:30 HDL Cholesterol 39 MG/DL (30-70) 07/28/17 05:30 TSH 3rd Generation 1.11 mIU/ML (0.46-4.68) 07/28/17 05:30 - Hospital Course Hospital Course: 62 y/o F with PMHx of Brain aneurysm, and stroke admitted with new intractable and persistent headaches. CT head without acute intracranial findings. CTA head and neck: without sacular aneurysms, endoluminal thrombus or occlusion; no stenosis interal carotid arteries. Neurology: Depakote and stable for d/c home. Depakote 500 mg BID x 14 days. f/u with neurology. Discharge Exam - Head Exam Head Exam: ATRAUMATIC, NORMAL INSPECTION Discharge Plan - Discharge Medications Prescriptions: Divalproex [Depakote ER] 500 mg PO BID 14 Days #28 ter Ibuprofen [Motrin] 400 mg PO Q6 PRN #20 tab PRN Reason: Headache - Follow Up Plan Condition: FAIR Disposition: HOME/ ROUTINE Instructions: Headache, Adult (DC) Additional Instructions: Please follow up with Dr. Chris on 08/17/[address] [place] [address] 11:00 Referrals: [facility] [Outside] <Valorie Figueroa - Last Filed: 07/29/17 09:52> Provider - Provider Date of Admission: 07/27/17 21:28 Attending physician: Cindy Degroot MD Hospital Course - Lab Results Lab Results: Most Recent Lab Values WBC 9.1 K/uL (4.8-10.8) 07/27/17 17:25 RBC 4.49 Mil/uL (3.80-5.20) 07/27/17 17:25 Hgb 13.1 g/dL (12.0-16.0) 07/27/17 17:25 Hct 39.5 % (34.0-47.0) 07/27/17 17:25 MCV 88.0 fl (81.0-99.0) 07/27/17 17:25 MCH 29.1 pg (27.0-31.0) 07/27/17 17: MCHC 33.1 g/dL (33.0-37.0) 07/27/17: RDW 14.0 % (11.5-14.5) 07/27/17 17: Plt Count 257 K/uL (130-400) 07/27/17 17: MPV 8.4 fl (7.2-11.7) 07/27/17 17: Neut % (Auto) 71.5 % (50.0-75.0) 07/27/17 17: Lymph % (Auto) 20.0 % (20.0-40.0) 07/27/17 17:25 [place] % (Auto) 5.3 % (0.0-10.0) 07/27/17 17:25 Eos % (Auto) 1.9 % (0.0-4.0) 07/27/17 17: Baso % (Auto) 1.3 % (0.0-2.0) 07/27/17:25 Neut # (Auto) 6.5 K/uL (1.8-7.0) 07/27/17 17:25 Lymph # (Auto) 1.8 K/uL (1.0-4.3) 07/27/17 17:25 [place] # (Auto) 0.5 K/uL (0.0-0.8) 07/27/17 17:25 Eos # (Auto) 0.2 K/uL (0.0-0.7) 07/27/17 17:25 Baso # (Auto) 0.1 K/uL (0.0-0.2) 07/27/17 17:25 ESR 19 mm/hr (0-30) 07/28/17 05:30 Sodium 140 mmol/l (132-148) 07/27/17 17:25 Potassium 3.9 MMOL/L (3.6-5.0) 07/27/17 17:25 Chloride 104 mmol/L (98-107) 07/27/17 17:25 Carbon Dioxide 23 mmol/L (22-30) 07/27/17 17:25 Anion Gap 17 (10-20) 07/27/17 17:25 BUN 14 mg/dl (7-17) 07/27/17 17:25 Creatinine 0.7 mg/dl (0.7-1.2) 07/27/17 17:25 Est GFR ( Amer) > 60 07/27/17 17:25 Est GFR (Non-Af Amer) > 60 07/27/17 17:25 Random Glucose 96 mg/dL (65-105) 07/27/17 17:25 Hemoglobin A1c 5.8 % (4.2-6.5) 07/28/17 05:30 Calcium 8.7 mg/dL (8.4-10.2) 07/27/17 17:25 Total Bilirubin 0.3 mg/dl (0.2-1.3) 07/27/17 17:25 AST 25 U/L (14-36) 07/27/17 17:25 ALT 39 U/L (9-52) 07/27/17 17:25 Alkaline Phosphatase 98 U/L (38-126) 07/27/17 17:25 Total Protein 6.8 G/DL (6.3-8.2) 07/27/17 17:25 Albumin 3.8 g/dL (3.5-5.0) 07/27/17 17:25 Globulin 3.1 gm/dL (2.2-3.9) 07/27/17 17:25 Albumin/Globulin Ratio 1.2 (1.0-2.1) 07/27/17 17:25 Triglycerides 141 mg/DL (0-149) 07/28/17 05:30 Cholesterol 228 mg/dL (0-199) H 07/28/17 05:30 LDL Cholesterol Direct 155 mg/dL (0-129) H 07/28/17 05:30 HDL Cholesterol 39 MG/DL (30-70) 07/28/17 05:30 TSH 3rd Generation 1.11 mIU/ML (0.46-4.68) 07/28/17 05:30 Attending/Attestation - Attestation I have personally seen and examined this patient.: Yes I have fully participated in the care of the patient.: Yes I have reviewed all pertinent clinical information, including history, physical exam and plan: Yes Notes (Text): 07/29/17 09:51 ATTENDING NOTE ATTESTATION. PATIENT SEEN AND EXAMINED. CASE DISCUSSED WITH RESIDENT. AGREE WITH FINDINGS AND PLAN
== END 2017-07-28 16:35 | disposition home or self-care (01) ==
LOC: H.ER 16:32 → H.ERHOLD 21:28 → H.MEDSURG1 07-28 00:52
PROVIDERS: ADMIT Family Medicine Geriatric Medicine; ATTEND Family Medicine Geriatric Medicine
DX: R51 Headache (principal); Z88.0 Allergy status to penicillin; Z23 Encounter for immunization; I10 Essential (primary) hypertension; E78.00 Pure hypercholesterolemia, unspecified
CPT/HCPCS: 36415; 70450; 70496; 70498; 71045; 80053; 80061; 83036; 84443; 85025; 85651; 90471; 90732; 93005; 96361; 96365; 96367; 96375; 96376; 99284; G0378; J0780; J1100; J1200; J1885; J3475; J7040; Q2035; Q9967

== ENCOUNTER 2018-04-05 20:43 | Emergency (ER) | payer MEDICAID ==
[2018-04-05 20:48] VITALS: RESP 16; O2SAT 100
[2018-04-05 21:51] LABS: BASO # 0.1 K/uL (0.0-0.2); BASO % 1.1 % (0.0-2.0); EOS # 0.2 K/uL (0.0-0.7); EOS % 1.9 % (0.0-4.0); LYMPH % 25.1 % (20.0-40.0); MEAN CELL VOLUME 87.3 fl (81.0-99.0); MEAN CORPUSCULAR HGB CONC 33.2 g/dL (33.0-37.0); MEAN PLATELET VOLUME 8.3 fl (7.2-11.7); MONO # 0.6 K/uL (0.0-0.8); MONO % 7.2 % (0.0-10.0); NEUT # 5.3 K/uL (1.8-7.0); NEUT % 64.7 % (50.0-75.0); NRBC % 0.1 % (0.0-0.0); RBC 4.83 Mil/uL (3.80-5.20); WHITE BLOOD COUNT 8.1 K/uL (4.8-10.8)
[2018-04-05 22:00] LABS: PROTHROMBIN TIME 11.5 Seconds (9.8-13.1)
[2018-04-05 22:01] LABS: ALB/GLOB RATIO 1.5 (1.0-2.1); ALBUMIN 4.2 g/dL (3.5-5.0); ALT/SGPT 30 U/L (9-52); AST/SGOT 24 U/L (14-36); BLOOD UREA NITROGEN 14 mg/dl (7-17); GFR NON-AFRICAN AMERICAN > 60
--- NOTE | 2018-04-05 22:26 | ED PDOC ---
HPI: SOB/CHF/COPD Time Seen by Provider: 04/05/18 20:51 Chief Complaint (Nursing): Anxiety Chief Complaint (Provider): Anxiety History Per: Patient History/Exam Limitations: no limitations Associated Symptoms: Chest Pain, Other (Shortness of breath) Additional Complaint(s): 62 years old female with history of anxiety presents to ER for evaluation of shortness of breath and chest pain after she received a call from Lanny regarding in family and became tearful. Patient reports she feel slight headed at this moment with some numbness to hands and lips. Patient is calm and able to speak at this time in the ED. PMD: Lindsey Palmer Past Medical History Reviewed: Historical Data, Nursing Documentation, Vital Signs Vital Signs: Last Vital Signs Temp 98.0 F 04/05/18 20:45 Pulse 79 04/05/18 20:45 Resp 16 04/05/18 20:45 BP 157/80 H 04/05/18 20:45 Pulse Ox 100 04/05/18 20:45 - Medical History PMH: Anxiety, HTN, Hypercholesterolemia Denies: HIV, Chronic Kidney Disease - Surgical History Surgical History: Cholecystectomy - Family History Family History: States: Unknown Family Hx - Social History Current smoker - smoking cessation education provided: No Alcohol: None Drugs: Denies - Immunization History Hx Tetanus Toxoid Vaccination: No Hx Influenza Vaccination: No Hx Pneumococcal Vaccination: No - Home Medications Home Medications: Ambulatory Orders Medication Instructions Recorded Divalproex [Depakote ER] 500 mg PO BID 14 Days #28 ter 07/28/17 Ibuprofen [Motrin] 400 mg PO Q6 PRN #20 tab 07/28/17 - Allergies Allergies/Adverse Reactions: Allergies Allergy/AdvReac Type Severity Reaction Status Date / Time Penicillins Allergy RASH Verified 04/05/18 20:45 Review of Systems ROS Statement: Except As Marked, All Systems Reviewed And Found Negative Cardiovascular: Positive for: Chest Pain Respiratory: Positive for: Shortness of Breath Psych: Positive for: Anxiety Physical Exam - Reviewed Nursing Documentation Reviewed: Yes Vital Signs Reviewed: Yes - Physical Exam Appears: Positive for: Non-toxic, No Acute Distress Head Exam: Positive for: ATRAUMATIC, NORMOCEPHALIC Skin: Positive for: Normal Color, Warm, Dry Eye Exam: Positive for: Normal appearance, EOMI, PERRL Neck: Positive for: Normal, Painless ROM, Supple Cardiovascular/Chest: Positive for: Regular Rate, Rhythm. Negative for: Murmur Respiratory: Positive for: Normal Breath Sounds. Negative for: Respiratory Distress Gastrointestinal/Abdominal: Positive for: Normal Exam, Soft. Negative for: Tenderness Back: Positive for: Normal Inspection. Negative for: L CVA Tenderness, R CVA Tenderness Extremity: Positive for: Normal ROM. Negative for: Pedal Edema, Deformity Neurologic/Psych: Positive for: Alert, Oriented (x3), Mood/Affect (Depressed affect), Other (Tearful) - Laboratory Results Result Diagrams: 04/05/18 21:30 04/05/18 21:30 - ECG O2 Sat by Pulse Oximetry: 100 (RA) Pulse Ox Interpretation: Normal Medical Decision Making Medical Decision Making: Time: 2058 Initial Impression: 62 years old female presents with acute anxiety Initial Plan: --EKG --CMP --Troponin I --CBC --PTT --PT --Urinalysis 03:50 Labs reviewed no clinically significant abnormalities. Patient evaluated by crisis. Diagnosis is acute anxiety. Patient is medically stable for discharge. Scribe Attestation: Documented by Licha Morejon, acting as a scribe for Michele Kelsey MD. Provider Scribe Attestation: All medical record entries made by the Scribe were at my direction and personally dictated by me. I have reviewed the chart and agree that the record accurately reflects my personal performance of the history, physical exam, medical decision making, and the department course for this patient. I have also personally directed, reviewed, and agree with the discharge instructions and disposition. Disposition - Clinical Impression Clinical Impression: Anxiety attack - Patient ED Disposition Is Patient to be Admitted: No - Disposition Disposition: Routine/Home Disposition Time: 03:50 Condition: STABLE Additional Instructions: STAS CHAMPAGNE, thank you for letting us take care of you today. Your provider was Michele Kelsey MD and you were treated for SYNCOPE,ANXIETY. The emergency medical care you received today was directed at your acute symptoms. If you were prescribed any medication, please fill it and take as directed. It may take several days for your symptoms to resolve. Return to the Emergency Department if your symptoms worsen, do not improve, or if you have any other problems. Please contact your doctor or call one of the physicians/clinics you have been referred to that are listed on the Patient Visit Information form that is included in your discharge packet. Bring any paperwork you were given at discharge with you along with any medications you are taking to your follow up visit. Our treatment cannot replace ongoing medical care by a primary care provider outside of the emergency department. Thank you for allowing the [facility] team to be part of your care today. If you had an X-Ray or CT scan: A Radiologist will review the ED reading if any change in treatment is needed we will contact you. If you had a blood, urine, or wound culture: It will take several days for the results, if any change in treatment is needed we will contact you. If you had an STI test: It will take 48 hours for the results. Please call after 1 week if you have not heard back. Instructions: Panic Disorder Forms: [employer] (Salvadorean) Print Language: WELSH
[2018-04-06 00:20] LABS: SQUAMOUS EPITHIAL 1 /hpf (0-5); URINE BILIRUBIN NEGATIVE (NEGATIVE); URINE BLOOD NEGATIVE (NEGATIVE); URINE CLARITY SLIGHTY-CLOUDY (Clear); URINE COLOR YELLOW (YELLOW); URINE GLUCOSE (UA) NEG (NEGATIVE); URINE LEUKOCYTE ESTERASE NEG Leu/uL (Negative); URINE PROTEIN NEGATIVE (NEGATIVE); URINE UROBILINOGEN 0.2-1.0 mg/dL (0.2-1.0)
[2018-04-06 04:10] VITALS: BP 104/64; PULSE 66; TEMP 98.3
--- NOTE | 2018-04-06 15:13 | CARD ---
APPROVED REPORT Date of service: 04/05/2018 EKG Measurement Heart [id number] <Conclusion> Normal sinus rhythm Normal ECG
== END 2018-04-06 03:50 | disposition home or self-care (01) ==
LOC: H.ER 20:43
DX: F41.0 Panic disorder [episodic paroxysmal anxiety] (principal); E78.00 Pure hypercholesterolemia, unspecified; I10 Essential (primary) hypertension; Z88.0 Allergy status to penicillin